=== PATIENT | female | born 1960 | race Caucasian/White ===

== ENCOUNTER → 2023-06-05 | Outpatient (CLI) | payer BC ==
[2023-06-05 16:15] LABS: BASOPHILS # (AUTO) 0.05 K/uL (0.00-0.20); BASOPHILS % (AUTO) 0.9 % (0.0-5.0); EOSINOPHILS % (AUTO) 5.3 % (0.0-8.0); HEMATOCRIT 45.3 % (36-48); IMMATURE GRANULOCYTE ABSOLUTE 0.01 K/uL (0-1); LYMPHOCYTES # (AUTO) 1.1 K/uL (1.0-4.8); MEAN CORPUSCULAR HEMOGLOBIN 29.5 pg (27.0-33.0); MEAN CORPUSCULAR HGB CONC 32.5 g/dL (32.0-36.0); MEAN CORPUSCULAR VOLUME 90.8 fL (79-99); MONOCYTES # (AUTO) 0.4 K/uL (0.1-1.0); MONOCYTES % (AUTO) 7.7 % (3.0-13.0); NEUTROPHILS # (AUTO) 3.8 K/uL (1.8-7.7); NEUTROPHILS % (AUTO) 65.9 % (40.0-77.0); PLATELET COUNT (AUTO) 239 K/uL (130-400); RED BLOOD CELL COUNT(AUTO) 4.99 MIL/uL (4.00-5.50); RED CELL DISTRIBUTION WIDTH 13.2 % (11.0-15.5); WHITE BLOOD COUNT (AUTO) 5.7 K/uL (4.8-10.8)
[2023-06-05 16:36] LABS: ALBUMIN 4.1 g/dL (3.5-5.0); BILIRUBIN,TOTAL 0.5 mg/dL (0.2-1.0); CREATININE 0.8 mg/dL (0.5-1.5); POTASSIUM 4.3 mmol/L (3.5-5.1); TOTAL PROTEIN, SERUM 7.6 g/dL (6.0-8.3)
[2023-06-05 16:37] LABS: HEMOGLOBIN A1C 5.8 % (4.0-6.0)
== END | disposition home or self-care (01) ==
LOC: LAB 11:39
PROVIDERS: ATTEND Student in an Organized Health Care Education/Training Program
DX: I44.7 Left bundle-branch block, unspecified (principal); I65.21 Occlusion and stenosis of right carotid artery
CPT/HCPCS: 36415; 80053; 80061; 83036; 85025

== ENCOUNTER → 2023-06-27 | Outpatient (CLI) | payer BC ==
[~2023-06-27] MED LIST: IOHEXOL 350 MG/ML 100ML INFUS..BTL IV ONE
== END | disposition home or self-care (01) ==
LOC: RAH 10:00 → EDUNIT# 10:30
PROVIDERS: ATTEND Student in an Organized Health Care Education/Training Program
DX: I44.7 Left bundle-branch block, unspecified (principal)
CPT/HCPCS: 75574; Q9967

== ENCOUNTER → 2023-07-01 | Outpatient (CLI) | payer BC | END | disposition home or self-care (01) | LOC: SHCH 13:50 → EDUNIT# 13:50 | PROVIDERS: ATTEND Student in an Organized Health Care Education/Training Program | DX: I65.21 Occlusion and stenosis of right carotid artery (principal); I44.7 Left bundle-branch block, unspecified; I49.9 Cardiac arrhythmia, unspecified; R07.9 Chest pain, unspecified; E78.5 Hyperlipidemia, unspecified; Z79.899 Other long term (current) drug therapy | CPT/HCPCS: 93880 ==